=== PATIENT | male | born 1965 ===

== ENCOUNTER 2017-01-28 20:13 | Emergency (ER) | payer OTHER ==
[2017-01-28 20:43] VITALS: BP 111/67; PULSE 83; RESP 16; O2SAT 100
[2017-01-28 20:49] VITALS: TEMP 99
--- NOTE | 2017-01-28 23:22 | ED PDOC ---
HPI: General Adult Time Seen by Provider: 01/28/17 22:17 Chief Complaint (Nursing): Fever Chief Complaint (Provider): fever, chills, headache, weakness History Per: Patient History/Exam Limitations: no limitations Onset/Duration Of Symptoms: Days (2) Have you had recent travel within the past 21 days to any of the following countries: [place], [place], [place] or [place]?: No Current Symptoms Are (Timing): Still Present Additional Complaint(s): 51yo male with no PMHx presents to the ED with c/o fever, chills, headache, and weakness x 2 days with diarrhea, nausea, abdominal pain, and diffuse body aches beginning today. Patient reports 1 episode of loose watery diarrhea with nausea and no vomiting. States he has had a cough as well. Denies SOB, chest pain. Took ibuprofen this morning with no relief. Positive ill contact with his daughter who has a URI. PCP: Dr. Asencio Past Medical History Reviewed: Historical Data, Nursing Documentation, Vital Signs Vital Signs: Last Vital Signs Temp 99.0 F 01/28/17 20:40 Pulse 83 01/28/17 20:40 Resp 16 01/28/17 20:40 BP 111/67 01/28/17 20:40 Pulse Ox 100 01/28/17 23:27 - Medical History PMH: No Chronic Diseases - Surgical History Surgical History: Appendectomy - Family History Family History: States: No Known Family Hx - Social History Current smoker - smoking cessation education provided: No Alcohol: None Drugs: Denies - Home Medications Home Medications: Ambulatory Orders Medication Instructions Recorded Dicyclomine [Bentyl] 20 mg PO Q12 PRN #20 tab 01/29/17 Oseltamivir [Tamiflu] 75 mg PO BID #10 cap 01/29/17 - Allergies Allergies/Adverse Reactions: Allergies Allergy/AdvReac Type Severity Reaction Status Date / Time No Known Allergies Allergy Verified 01/28/17 20:40 Review of Systems ROS Statement: Except As Marked, All Systems Reviewed And Found Negative Constitutional: Positive for: Fever, Chills, Other (body aches ) Cardiovascular: Negative for: Chest Pain Respiratory: Positive for: Cough. Negative for: Shortness of Breath Gastrointestinal: Positive for: Nausea, Abdominal Pain, Diarrhea. Negative for : Vomiting Neurological: Positive for: Weakness, Headache Physical Exam - Reviewed Nursing Documentation Reviewed: Yes Vital Signs Reviewed: Yes - Physical Exam Appears: Positive for: Well, No Acute Distress Head Exam: Positive for: ATRAUMATIC, NORMAL INSPECTION, NORMOCEPHALIC Skin: Positive for: Normal Color, Warm, Dry Eye Exam: Positive for: Normal appearance, EOMI, PERRL ENT: Positive for: Normal ENT Inspection Neck: Positive for: Normal, Painless ROM, Supple Cardiovascular/Chest: Positive for: Regular Rate, Rhythm. Negative for: Murmur , Tachycardia Respiratory: Positive for: Normal Breath Sounds. Negative for: Wheezing, Respiratory Distress Gastrointestinal/Abdominal: Positive for: Soft, Tenderness (mild diffuse abdominal tenderness ). Negative for: Guarding, Rebound Back: Positive for: Normal Inspection. Negative for: L CVA Tenderness, R CVA Tenderness Extremity: Positive for: Normal ROM. Negative for: Deformity, Swelling Neurologic/Psych: Positive for: Alert, Oriented. Negative for: Motor/Sensory Deficits - Laboratory Results Result Diagrams: 01/28/17 23:37 01/28/17 23:37 - ECG O2 Sat by Pulse Oximetry: 100 Pulse Ox Interpretation: Normal (RA) Medical Decision Making Medical Decision Makin: Impression: 51yo male w/ flu-like symptoms Plan: Labs Bentyl 20mg PO, IVF, Tylenol 650mg PO flu swab reassess 0125: Labs reviewed, show no clinically significant abnormalities. Patient reports feeling better and is stable for discharge. Dx: flu-like illness, gastroenteritis stable Scribe Attestation: Documented by Bryant Scott acting as a scribe for Jarret Jc MD. Provider Scribe Attestation: All medical record entries made by the Scribe were at my direction and personally dictated by me. I have reviewed the chart and agree that the record accurately reflects my personal performance of the history, physical exam, medical decision making, and the department course for this patient. I have also personally directed, reviewed, and agree with the discharge instructions and disposition. Disposition - Clinical Impression Clinical Impression: Gastroenteritis, Influenza-like illness - Patient ED Disposition Is Patient to be Admitted: No - Disposition Disposition: Routine/Home Disposition Time: 01:25 Condition: STABLE Prescriptions: Dicyclomine [Bentyl] 20 mg PO Q12 PRN #20 tab PRN Reason: abdominal pain/diarrhea Oseltamivir [Tamiflu] 75 mg PO BID #10 cap Instructions: Gastroenteritis (ED) Forms: [employer] ([place]), [facility] ED School/Work Excuse
[2017-01-28 23:44] LABS: BASO % 0.4 % (0.0-2.0); EOS % 0.4 % (0.0-4.0); HEMATOCRIT 40.8 % (35.0-51.0); LYMPH # 0.7 K/uL (1.0-4.3); LYMPH % 12.2 % (20.0-40.0); MEAN CELL VOLUME 88.5 fl (80.0-94.0); MEAN CORPUSCULAR HGB CONC 33.9 g/dL (33.0-37.0); MEAN PLATELET VOLUME 8.8 fl (7.2-11.7); MONO # 0.8 K/uL (0.0-0.8); MONO % 13.5 % (0.0-10.0); NEUT # 4.2 K/uL (1.8-7.0); NEUT % 73.5 % (50.0-75.0); NRBC % 0.1 % (0.0-0.0); RED CELL DISTRIBUTION WIDTH 13.6 % (11.5-14.5); WHITE BLOOD COUNT 5.8 K/uL (4.8-10.8)
[2017-01-28 23:57] LABS: ALB/GLOB RATIO 1.1 (1.0-2.1); ALKALINE PHOSPHATASE 72 U/L (38-126); ALT/SGPT 43 U/L (21-72); AST/SGOT 56 U/L (17-59); BILIRUBIN,TOTAL 1.2 mg/dl (0.2-1.3); BLOOD UREA NITROGEN 15 mg/dl (9-20); CALCIUM 9.1 mg/dL (8.4-10.2); CARBON DIOXIDE 27 mmol/L (22-30); CHLORIDE 100 mmol/L (98-107); GFR AFRICAN-AMERICAN > 60; GLUCOSE,RANDOM 96 mg/dL (75-110); LIPASE 61 U/L (23-300); SODIUM 138 mmol/l (132-148); TOTAL PROTEIN 9.3 G/DL (6.3-8.2)
[2017-01-29] MEDS: Sodium Chloride 0.9% 1,000 ML IV STA (00:25)
== END 2017-01-29 01:19 | disposition home or self-care (01) ==
LOC: H.ER 20:13
DX: K52.9 Noninfective gastroenteritis and colitis, unspecified (principal); R51 Headache; R11.0 Nausea

== ENCOUNTER 2017-08-08 15:30 | Emergency (ER) | payer OTHER ==
[2017-08-08 15:41] VITALS: BP 119/56; PULSE 60; RESP 18; TEMP 98.2; O2SAT 98
--- NOTE | 2017-08-08 16:39 | RAD ---
PROCEDURE: Radiographs of the Chest and Left Ribs. HISTORY: left rib pain, no trauma, hx fracture COMPARISON: None available. TECHNIQUE: Frontal radiograph of the chest and multiple oblique radiographs of the left ribs were obtained. FINDINGS: LEFT RIBS: No fracture or focal lesion visualized. LUNGS: Clear. PLEURA: No pneumothorax or pleural fluid. CARDIOVASCULAR: Normal sized heart. No pulmonary vascular congestion. OTHER FINDINGS: None. IMPRESSION: Unremarkable radiographs of the chest and left ribs. No left rib fracture.
--- NOTE | 2017-08-08 17:08 | ED PDOC ---
HPI: General Adult Time Seen by Provider: 08/08/17 15:41 Chief Complaint (Nursing): Rib Injury Chief Complaint (Provider): Flank pain History Per: Patient History/Exam Limitations: no limitations Onset/Duration Of Symptoms: Days (x4) Current Symptoms Are (Timing): Still Present Severity: Mild Pain Scale Rating Of: 8 Additional Complaint(s): Damien Cannon is a 52 year old male, with a past medical history of left rib fracture, who presents to the emergency department complaining of left flank pain onset for 5 days. Patient describes the pain as dull and is concerned due to his rib fracture. He denies injuries but states that moving and lifting heavy objects at work has made the pain worst. No further medical complaints. PMD: Iban Asencio Past Medical History Reviewed: Historical Data, Nursing Documentation, Vital Signs Vital Signs: Last Vital Signs Temp 98.2 F 08/08/17 15:37 Pulse 60 08/08/17 15:37 Resp 18 08/08/17 15:37 BP 119/56 L 08/08/17 15:37 Pulse Ox 98 08/08/17 17:08 - Surgical History Surgical History: Appendectomy - Family History Family History: States: Unknown Family Hx - Social History Current smoker - smoking cessation education provided: No Alcohol: None Drugs: Denies - Home Medications Home Medications: Ambulatory Orders Medication Instructions Recorded Dicyclomine [Bentyl] 20 mg PO Q12 PRN #20 tab 01/29/17 Oseltamivir [Tamiflu] 75 mg PO BID #10 cap 01/29/17 - Allergies Allergies/Adverse Reactions: Allergies Allergy/AdvReac Type Severity Reaction Status Date / Time No Known Allergies Allergy Verified 01/28/17 20:40 Review of Systems ROS Statement: Except As Marked, All Systems Reviewed And Found Negative Constitutional: Negative for: Other (injuries/trauma) Musculoskeletal: Positive for: Other (Left flank pain) Physical Exam - Reviewed Nursing Documentation Reviewed: Yes Vital Signs Reviewed: Yes - Physical Exam Appears: Positive for: Well, Non-toxic, No Acute Distress Head Exam: Positive for: ATRAUMATIC, NORMAL INSPECTION, NORMOCEPHALIC Skin: Positive for: Normal Color, Warm, Dry Eye Exam: Positive for: EOMI, Normal appearance, PERRL Neck: Positive for: Normal, Painless ROM, Supple Respiratory: Negative for: Respiratory Distress Gastrointestinal/Abdominal: Positive for: Normal Exam, Bowel Sounds, Soft. Negative for: Tenderness, Other (no bruising or step-offs) Extremity: Positive for: Normal ROM Neurologic/Psych: Positive for: Alert, Oriented - ECG O2 Sat by Pulse Oximetry: 98 (RA) Pulse Ox Interpretation: Normal Medical Decision Making Medical Decision Making: Initial Impression: rib pain on left side Initial Plan: --Ribs and chest LT [RAD] --Tylenol 650 mg PO --reevaluation 1631 Ribs w/ Chest X-Ray FINDINGS: LEFT RIBS: No fracture or focal lesion visualized. LUNGS: Clear. PLEURA: No pneumothorax or pleural fluid. CARDIOVASCULAR: Normal sized heart. No pulmonary vascular congestion. OTHER FINDINGS: None. IMPRESSION: Unremarkable radiographs of the chest and left ribs. No left rib fracture. ~ Scribe Attestation: Documented by Hernán Castillo, acting as a scribe for Florence Coker PA-C. Provider Scribe Attestation: All medical record entries made by the Scribe were at my direction and personally dictated by me. I have reviewed the chart and agree that the record accurately reflects my personal performance of the history, physical exam, medical decision making, and the department course for this patient. I have also personally directed, reviewed, and agree with the discharge instructions and disposition. Disposition - Clinical Impression Clinical Impression: Rib pain on left side - Patient ED Disposition Is Patient to be Admitted: No Counseled Patient/Family Regarding: Diagnosis, Need For Followup - Disposition Disposition: Routine/Home Disposition Time: 17:07 Condition: GOOD Forms: [employer] (Dominican), [facility] ED School/Work Excuse
== END 2017-08-08 17:11 | disposition home or self-care (01) ==
LOC: H.ER 15:30
DX: R07.82 Intercostal pain (principal)